=== PATIENT | male | born 1980 | race Caucasian/White ===

== ENCOUNTER 2019-01-10 18:18 | Emergency (ER) | payer BC ==
--- NOTE | 2019-01-10 19:41 | RADIOLOGY REPORT (SQ) ---
EXAM DESCRIPTION: FOOT RIGHT COMPLETE COMPLETED DATE/TIME: 01/10/2019 7:11 pm REASON FOR STUDY: R foot pain s/p fall COMPARISON: None. EXAM PARAMETERS: NUMBER OF VIEWS: Three views. TECHNIQUE: AP, lateral and oblique radiographic images acquired of the right foot. LIMITATIONS: None. FINDINGS: MINERALIZATION: Normal. BONES: No dislocation. Linear Lucency in the anterior portion of the calcaneus involving the calcane ocuboid joint, likely nondisplaced fracture. No other fracture identified. JOINTS: No effusion. SOFT TISSUES: No significant soft tissue swelling. No radiopaque foreign body. OTHER: No other significant finding. IMPRESSION: Linear Lucency in the anterior portion of the calcaneus involving the calcaneocuboid neisha nt, likely nondisplaced fracture. No other fracture identified. TECHNICAL DOCUMENTATION: JOB ID: [id number] [place]-72 2010 [employer]- All Rights Reserved Reading location - IP/workstation name: [email or web address]
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
[2019-01-10] MEDS ORDERED: HYDROCODONE/ACETAMINOPHEN 5-325 MG (6 TAB/ER DISP) PO PRN (20:00)
[2019-01-10 20:49] VITALS: BP 122/68
== END 2019-01-10 20:48 | disposition home or self-care (01) ==
LOC: ER 18:18
DX: S92.001A Unspecified fracture of right calcaneus, initial encounter for closed fracture (principal); Y04.0XXA Assault by unarmed brawl or fight, initial encounter; F17.200 Nicotine dependence, unspecified, uncomplicated
CPT/HCPCS: 99283